=== PATIENT | female | born 1960 | race African-American/Black ===

== ENCOUNTER 2017-03-31 08:56 | Outpatient (CLI) | payer BC ==
--- NOTE | 2017-03-31 10:15 | MMO ---
BILATERAL SCREENING MAMMOGRAM: History: 38-year-old female for screening mammography. Comparison: 9--16, 02-14-15, 12-06-13 FINDINGS: Bilateral MLO and CC views of the breast show scattered fibroglandular breast tissue. Benign appeari ng calcifications are seen in both breasts. There is no evidence of suspicious mass, suspicious clus ter of microcalcifications, or area of architectural distortion. This study is interpreted with the assistance of computer aided detection. IMPRESSION: BIRADS 2 - benign findings. Annual screening mammography recommended. POS: KRISTINA
== END 2017-03-31 08:57 | disposition home or self-care (01) ==
LOC: SCSMAMMO 08:56
PROVIDERS: ATTEND Family Medicine
DX: Z12.31 Encounter for screening mammogram for malignant neoplasm of breast (principal)
CPT/HCPCS: 77067; G0202

== ENCOUNTER 2018-04-03 08:44 | Outpatient (CLI) | payer BC | END 2018-04-03 08:45 | disposition home or self-care (01) | LOC: BICMAMMO 08:44 | PROVIDERS: ATTEND Family Medicine | DX: Z12.31 Encounter for screening mammogram for malignant neoplasm of breast (principal) | CPT/HCPCS: 77063; 77067 ==

== ENCOUNTER 2018-10-11 09:35 | Outpatient (CLI) | payer BC ==
--- NOTE | 2018-10-11 10:49 | MMO ---
Right Breast MAMMO Unilat Diag DDI RT+DANA. CLINICAL HISTORY: Patient is 58 years old and is seen for diagnostic exam,palpable abnormality and pain in the right breast. The patient has no family history of breast cancer. The patient has no personal history of cancer. VIEWS: The views performed were: right craniocaudal with tomosynthesis; right mediolateral oblique with tomosynthesis; and right mediolateral. FILMS COMPARED: The present examination has been compared to prior imaging studies performed at [facility] on 02/11/2015, 02/20/2016, 03/31/2017, 04/03/2018 and 10/11/2018. MAMMOGRAM FINDINGS: There are scattered fibroglandular densities. There are lymph nodes at 10:00 position , confirmed on US. There are no suspicious masses, suspicious calcifications, or new areas of architectural distortion. IMPRESSION: THERE IS NO MAMMOGRAPHIC EVIDENCE OF MALIGNANCY. A ROUTINE FOLLOW-UP MAMMOGRAM IN 1 YEAR IS RECOMMENDED. THE RESULTS OF THIS EXAM WERE SENT TO THE PATIENT. ACR BI-RADS Category 2 - Benign finding MAMMOGRAPHY NOTE: 1. A negative mammogram report should not delay a biopsy if a dominant of clinically suspicious mass is present. 2. Approximately 10% to 15% of breast cancers are not detected by mammography. 3. Adenosis and dense breasts may obscure an underlying neoplasm.
--- NOTE | 2018-10-11 11:31 | ULT ---
RIGHT BREAST ULTRASOUND: HISTORY: Palpable abnormality at the 10 o'clock position of the right breast. FINDINGS: Correlation is made with mammogram on the same date. Sonographic evaluation of the 10 o'clock position of the right breast demonstrates hypoechoic nodules with echogenic hilum consistent with lymph nodes. These measure 1.7 x 0.6 x 0.7 cm and 1.6 x 0.6 x 0.9 cm respectively. These correspond to the lymph nodes on the mammogram. IMPRESSION: BIRADS category 2 - benign findings. Return to annual mammographic screening. POS: OFF
== END 2018-10-11 09:36 | disposition home or self-care (01) ==
LOC: BICMAMMO 09:35
PROVIDERS: ATTEND Family Medicine
DX: N63.11 Unspecified lump in the right breast, upper outer quadrant (principal)
CPT/HCPCS: G0279

== ENCOUNTER 2019-03-08 22:15 | Emergency (ER) | payer BC ==
--- NOTE | 2019-03-08 23:02 | RAD ---
EXAM: Chest 2 views: HISTORY: Upper back pain and cough COMPARISON: None. FINDINGS: There is a normal-sized cardiomediastinal silhouette. There is no evidence of consolidation, mass, or pleural effusion. The bones are unremarkable. IMPRESSION: No evidence of acute cardiopulmonary disease
--- NOTE | 2019-03-10 13:37 | EKG ---
Test Reason : Blood Pressure : / mmHG Vent. Rate : 064 BPM Atrial Rate : 064 BPM P-R Int : 154 ms QRS Dur : 088 ms QT Int : 412 ms P-R-T Axes : 069 025 032 degrees QTc Int : 425 ms Normal sinus rhythm Normal ECG Confirmed by MONICA HERNANDEZ ([id number]), medical editor DANIELLE ORTIZ ([id number]) on 03/10/2019 1:37:42 PM Referred By: Confirmed By:MONICA HERNANEDZ
== END 2019-03-08 23:26 | disposition home or self-care (01) ==
LOC: ERS 22:15
DX: M54.6 Pain in thoracic spine (principal); E78.5 Hyperlipidemia, unspecified; E78.00 Pure hypercholesterolemia, unspecified; I10 Essential (primary) hypertension; F41.9 Anxiety disorder, unspecified
CPT/HCPCS: 71046; 93005

== ENCOUNTER 2019-04-11 12:36 | Outpatient (CLI) | payer BC ==
--- NOTE | 2019-04-11 14:09 | MMO ---
Bilateral MAMMO Bilat Screen DDI+DANA. CLINICAL HISTORY: Patient is 58 years old and is seen for screening. The patient has the following family history of breast cancer: sister. The patient has no personal history of cancer. VIEWS: The views performed were: bilateral craniocaudal with tomosynthesis and bilateral mediolateral oblique with tomosynthesis. FILMS COMPARED: The present examination has been compared to prior imaging studies performed at [facility] on 03/31/2017, 04/03/2018 and 10/11/2018. This study has been interpreted with the assistance of computer-aided detection. MAMMOGRAM FINDINGS: There are scattered fibroglandular densities. There are benign appearing calcifications seen in both breasts. There are no suspicious masses, suspicious calcifications, or new areas of architectural distortion. IMPRESSION: THERE IS NO MAMMOGRAPHIC EVIDENCE OF MALIGNANCY. A ROUTINE FOLLOW-UP MAMMOGRAM IN 1 YEAR IS RECOMMENDED. THE RESULTS OF THIS EXAM WERE SENT TO THE PATIENT. ACR BI-RADS Category 2 - Benign finding MAMMOGRAPHY NOTE: 1. A negative mammogram report should not delay a biopsy if a dominant of clinically suspicious mass is present. 2. Approximately 10% to 15% of breast cancers are not detected by mammography. 3. Adenosis and dense breasts may obscure an underlying neoplasm. Reported by: MEMO TUCKRE MD Electonically Signed: [id number]
== END 2019-04-11 12:37 | disposition home or self-care (01) ==
LOC: BICMAMMO 12:36
PROVIDERS: ATTEND Family Medicine
DX: Z12.31 Encounter for screening mammogram for malignant neoplasm of breast (principal); Z80.3 Family history of malignant neoplasm of breast
CPT/HCPCS: 77063; 77067

== ENCOUNTER 2020-04-22 09:53 | Outpatient (CLI) | payer OTHER ==
--- NOTE | 2020-04-22 10:47 | MMO ---
Bilateral MAMMO Bilat Screen DDI+DANA. CLINICAL HISTORY: Patient is 59 years old and is seen for screening. The patient has the following family history of breast cancer: sister. The patient has no personal history of cancer. VIEWS: The views performed were: bilateral craniocaudal with tomosynthesis and bilateral mediolateral oblique with tomosynthesis. FILMS COMPARED: The present examination has been compared to prior imaging studies performed at [facility] on 04/03/2018, 10/11/2018 and 04/11/2019. This study has been interpreted with the assistance of computer-aided detection. MAMMOGRAM FINDINGS: There are scattered fibroglandular densities. Benign calcifications are noted bilaterally. There are no suspicious masses, suspicious calcifications, or new areas of architectural distortion. IMPRESSION: THERE IS NO MAMMOGRAPHIC EVIDENCE OF MALIGNANCY. A ROUTINE FOLLOW-UP MAMMOGRAM IN 1 YEAR IS RECOMMENDED. THE RESULTS OF THIS EXAM WERE SENT TO THE PATIENT. ACR BI-RADS Category 2 - Benign finding MAMMOGRAPHY NOTE: 1. A negative mammogram report should not delay a biopsy if a dominant of clinically suspicious mass is present. 2. Approximately 10% to 15% of breast cancers are not detected by mammography. 3. Adenosis and dense breasts may obscure an underlying neoplasm. Reported by: DENI JIN MD Electonically Signed: [id number]
== END 2020-04-22 09:54 | disposition home or self-care (01) ==
LOC: BICMAMMO 09:53
PROVIDERS: ATTEND Family Medicine
DX: Z12.31 Encounter for screening mammogram for malignant neoplasm of breast (principal); Z80.3 Family history of malignant neoplasm of breast
CPT/HCPCS: 77063; 77067

== ENCOUNTER 2021-04-24 08:06 | Outpatient (CLI) | payer OTHER | END 2021-04-24 08:07 | disposition home or self-care (01) | LOC: BICMAMMO 08:06 | PROVIDERS: ATTEND Family Medicine | DX: Z12.31 Encounter for screening mammogram for malignant neoplasm of breast (principal); Z80.3 Family history of malignant neoplasm of breast | CPT/HCPCS: 77063; 77067 ==

== ENCOUNTER 2022-05-07 09:03 | Outpatient (CLI) | payer OTHER | END 2022-05-07 09:04 | disposition home or self-care (01) | LOC: BICMAMMO 09:03 | PROVIDERS: ATTEND Family Medicine | DX: Z12.31 Encounter for screening mammogram for malignant neoplasm of breast (principal); Z80.3 Family history of malignant neoplasm of breast | CPT/HCPCS: 77063; 77067 ==

== ENCOUNTER 2022-06-26 15:30 | Emergency (ER) | payer OTHER ==
[~2022-06-26 15:30] MED LIST: Iopamidol-370 76% 500 ML 1 ML ONE
[2022-06-26 16:01] LABS: #Eosinphils 0.1 thou/uL (0.0-0.7); #Lymphocytes 2.5 thou/uL (1.20-3.40); #Monocytes 0.4 thou/uL (0.11-0.59); #Neutrophils 5.5 thou/uL (1.40-6.50); %Basophils 0.1 % (0.0-1.0); %Eosinophils 1.1 % (0.0-10.0); %Lymphocytes 29.7 % (21.0-51.0); %Monocytes 4.3 % (0.0-10.0); %Neutrophils 64.8 % (42.0-75.0); Mean Corpuscular HGB CONC 32.5 g/dL (32.0-36.0); Mean Corpuscular Hemoglobin 29.9 pg (27.0-31.0); Mean Corpuscular Volume 91.9 fl (78.0-98.0); Mean Platelet Volume 7.7 fL (7.4-10.4); Platelet Count 263 10x3/uL (130-400); RBC Distribution Width 11.5 % (11.5-14.5); Red Blood Cell (RBC) Count 4.66 mill/uL (4.20-5.40); White Blood Cell (WBC) Count 8.5 10x3/uL (4.8-10.8)
[2022-06-26 16:19] LABS: ALT (SGPT) 14 U/L (8-55); AST (SGOT) 16 U/L (5-34); Albumin 4.6 g/dL (3.4-4.8); Alkaline Phosphatase 56 U/L (40-110); Anion Gap 13 mmol/L (10-20); BUN (Urea Nitrogen) 9 mg/dL (9.8-20.1); Bilirubin, Total 0.3 mg/dL (0.2-1.2); Calc. Creatinine Clearance 0 mL/min (70-130); Calcium 9.9 mg/dL (7.8-10.44); Carbon Dioxide 28 mmol/L (23-31); Chloride 103 mmol/L (98-107); Estimated GFR 83; Glucose 112 mg/dL (80-115); Potassium 3.4 mmol/L (3.5-5.1); Protein, Total 7.6 g/dL (5.8-8.1); Sodium 141 mmol/L (136-145)
[2022-06-26] MEDS ORDERED: Aspirin Chewable 81 MG TAB ONE (18:36)
== END 2022-06-26 21:56 | disposition home or self-care (01) ==
LOC: ERS 15:30
DX: R07.9 Chest pain, unspecified (principal); E78.00 Pure hypercholesterolemia, unspecified; I10 Essential (primary) hypertension; Z79.899 Other long term (current) drug therapy
CPT/HCPCS: 36415; 71045; 71275; 80053; 84443; 84484; 85025; 93005; Q9967

== ENCOUNTER 2023-05-27 08:43 | Outpatient (CLI) | payer OTHER | END 2023-05-27 08:44 | disposition home or self-care (01) | LOC: BICMAMMO 08:43 | PROVIDERS: ATTEND Family Medicine | DX: Z12.31 Encounter for screening mammogram for malignant neoplasm of breast (principal); Z80.3 Family history of malignant neoplasm of breast | CPT/HCPCS: 77063; 77067 ==

== ENCOUNTER 2023-09-09 07:42 | Outpatient (CLI) | payer OTHER ==
[2023-09-09] MEDS ORDERED: Iopamidol 370 76% 100 ML VIAL ONE (12:47)
== END 2023-09-09 07:43 | disposition home or self-care (01) ==
LOC: CT 07:42
PROVIDERS: ATTEND Family Medicine
DX: R10.9 Unspecified abdominal pain (principal)
CPT/HCPCS: 74178; 82565; Q9967

== ENCOUNTER 2024-06-22 08:36 | Outpatient (CLI) | payer OTHER | END 2024-06-22 08:37 | disposition home or self-care (01) | LOC: BICMAMMO 08:36 | PROVIDERS: ATTEND Family Medicine | DX: Z12.31 Encounter for screening mammogram for malignant neoplasm of breast (principal); Z80.3 Family history of malignant neoplasm of breast | CPT/HCPCS: 77063; 77067 ==